=== PATIENT | female | born 2000 | race Caucasian/White ===

== ENCOUNTER 2023-07-31 13:21 | Emergency (ER) | payer OTHER ==
[~2023-07-31] VITALS: Ht 157.5 cm; Wt 74.0 kg
[2023-07-31 13:32] VITALS: BP 101/47; PULSE 65; TEMP 98.2; O2SAT 99
[2023-07-31 15:30] VITALS: RESP 16
== END 2023-07-31 15:30 | disposition home or self-care (01) ==
LOC: ER 13:21
DX: T75.89XA Other specified effects of external causes, initial encounter (principal); X58.XXXA Exposure to other specified factors, initial encounter; Y93.89 Activity, other specified; Y92.89 Other specified places as the place of occurrence of the external cause; Y99.8 Other external cause status
CPT/HCPCS: 99281